=== PATIENT | female | born 1945 | race Caucasian/White ===

== ENCOUNTER 2022-01-07 13:34 | Emergency (ER) | payer OTHER ==
--- OUTSIDE RECORDS SUMMARY | 2022-01-07 13:37 | XMS REPORT | Continuity of Care Document ---
:1945 Author Organization [facility] t Address [address] [place] [address] Dr. Lawson [address] [place] [id number] Care Team Providers Name Role Phone Unavailable Unavailable Unavailable Problems This patient has no known problems. Allergies, Adverse Reactions, Alerts This patient has no known allergies or adverse reactions. Medications This patient has no known medications. Procedures This patient has no known procedures. Encounters Start End Encounter Admission Attending Care Care Encounter Source Date/Time Date/Time Type Type Clinicians Facility Department ID 2021-12-[address] [facility] [id number] [facility] (formerly [facility] 15:10:02 T[facility] jerry [facility] ent Clinics Results This patient has no known results.
--- NOTE | 2022-01-07 19:21 | ER ---
Nurse's Notes [facility] Name: Analilia Puga Age: 77 yrs Sex: Female : 1945 Arrival Date: 01/07/2022 Time: 13:39 Bed 12 Private MD: Aly Moe R Diagnosis: Presentation: 01/07 13:46 Chief complaint: Patient states: R leg pain for at least [address] Durand, did ll1 blood work, no result yet. Still has pain so she came here. L leg hurts slightly. Coronavirus screen: Vaccine status: Patient reports receiving the 2nd dose of the covid vaccine. Client denies travel out of the [place] in the last 14 days. At this time, the client does not indicate any symptoms associated with coronavirus-19. Ebola Screen: Patient denies travel to an Ebola-affected area in the 21 days before illness onset. Initial Sepsis Screen: Does the patient meet any 2 criteria? No. Patient's initial sepsis screen is negative. Does the patient have a suspected source of infection? Yes: Bone or joint infection. Risk Assessment: Do you want to hurt yourself or someone else? Patient reports no desire to harm self or others. Onset of symptoms was December 07, 2021. 13:46 Method Of Arrival: Ambulatory ll1 13:46 Acuity: REYNA 4 ll1 Triage Assessment: 13:50 General: Appears in no apparent distress. Behavior is calm, cooperative, appropriate ll1 for age. Pain: Complains of pain in R leg. Musculoskeletal: Reports pain in right leg. Historical: - Allergies: 13:49 No Known Allergies; ll1 - PMHx: 13:49 Hypertensive disorder; Hypercholesterolemia; Diabetes mellitus; ll1 - PSHx: 13:49 hysterectomy; ll1 - Immunization history:: Client reports having NOT received the Covid vaccine. - Social history:: Smoking status: Patient denies any tobacco usage or history of. Vital Signs: 13:46 BP 158 / 75; Pulse 100; Resp 16; Temp 98.1; Pulse Ox 95% ; Weight 65.77 kg; Height 5 ll1 ft. 3 in. (160.02 cm); Pain 10/10; 13:46 Body Mass Index 25.69 (65.77 kg, 160.02 cm) ll1 ED Course: 13:39 Patient arrived in ED. mr 13:40 Aly Moe MD is Private Physician. mr 13:49 Triage completed. ll1 13:50 Arm band placed on. ll1 16:00 [facility] cp 16:00 Edwar Jama MD is Attending Physician. cp 19:38 Attending Physician role handed off by Edwar Jama MD cp Administered Medications: No medications were administered Outcome: 19:20 Patient left the ED. vc1 19:41 Patient left the ED. vc1 20:04 Patient left the ED. vc1 Signatures: Espinosa Keerthi mr Edwar Soliz PA PA cp Lewis, Lynsay, RN RN 1 Yane Allen RN RN 1
[2022-01-07 19:32] VITALS: BP 158/75; TEMP 98.1; O2SAT 95
== END 2022-01-07 20:04 | disposition left against medical advice (07) ==
LOC: ER 13:34
DX: Z53.21 Procedure and treatment not carried out due to patient leaving prior to being seen by health care provider (principal)
CPT/HCPCS: 99281